=== PATIENT | female | born 1950 | race Caucasian/White ===

== ENCOUNTER 2017-05-29 07:09 | Emergency (ER) | payer BC, OTHER ==
[2017-05-29 07:19] VITALS: BP 135/76
--- NOTE | 2017-05-29 07:39 | UC ---
Respiratory Complaint HPI - HPI Summary HPI Summary: OVER 1 WEEK OF PRODUCTIVE COUGH, CONGESTION AND INTERMITTENT SUBJECTIVE FEVER/ CHILLS. FEELS LIKE HER GLANDS ARE SWOLLEN. NO ST, EAR PAIN, N/V/D. NOT FEELING SOB OR WHEEZY. - History of Current Complaint Chief Complaint: UCRespiratory Stated Complaint: COUGH Time Seen by Provider: 05/29/17 07:21 Hx Obtained From: Patient Onset/Duration: Gradual Onset, Lasting Days, Still Present Timing: Constant Severity Initially: Moderate Severity Currently: Moderate Pain Intensity: 0 Pain Scale Used: 0-10 Numeric Character: Cough: Productive Aggravating Factors: Nothing Alleviating Factors: Nothing Associated Signs And Symptoms: Positive: Fever, Chills, URI, Nasal Congestion. Negative: Dyspnea, Wheezing, Hemoptysis - Allergies/Home Medications Allergies/Adverse Reactions: Allergies Allergy/AdvReac Type Severity Reaction Status Date / Time Bee Venom Allergy Severe Anaphylatic Verified 05/29/17 07:19 Shock Nitrofurantoin Allergy Severe Wheezing Verified 05/29/17 07:19 [From Macrodantin] Adhesive Tape Allergy Rash Verified 05/29/17 07:20 Home Medications: Home Medications Estradiol VAGINAL TAB(NF) [Vagifem] 1 tab VAGINAL SEE INSTRUCTIONS 05/29/17 [ History Confirmed 05/29/17] [id number]-Bkyvgrywuf-Gesac [VICKS DAYQUIL/NYQUIL COLD (Liquid)] 30 ml PO BID PRN 05/29/17 [History Confirmed 05/29/17] PMH/Surg Hx/FS Hx/Imm Hx Previously Healthy: Yes - Surgical History Surgical History: Yes Surgery Procedure, Year, and Place: LEFT SHOULDER ARTHROSCOPY 2013. LEFT HIP ARTHROSCOPY 2009. RIGHT KNEE ARTHROSCOPY 2005. RUPTURED EAR DRUM-PATCHED THE HOLE 02/2016 - Family History Known Family History: Positive: None Negative: Hypertension - Social History Alcohol Use: Rare Substance Use Type: None Smoking Status (MU): Never Smoked Tobacco - Immunization History Most Recent Influenza Vaccination: Not UTD Most Recent Pneumonia Vaccination: 2006 Hx Tetanus, Diphtheria Vaccination: Yes Review of Systems Constitutional: Fever, Chills, Fatigue ENT: Nasal Discharge Respiratory: Cough Cardiovascular: Negative Gastrointestinal: Negative All Other Systems Reviewed And Are Negative: Yes Physical Exam Triage Information Reviewed: Yes Appearance: Well-Appearing, No Pain Distress, Well-Nourished Vital Signs: Initial Vital Signs Temp 98.8 F 05/29/17 07:13 Pulse 82 05/29/17 07:13 Resp 18 05/29/17 07:13 BP 135/76 05/29/17 07:13 Pulse Ox 97 05/29/17 07:13 Vital Signs Reviewed: Yes Eyes: Positive: Conjunctiva Clear ENT: Positive: Hearing grossly normal, Pharynx normal, TMs normal Neck: Positive: Supple, Nontender, No Lymphadenopathy Respiratory Exam: Normal Cardiovascular Exam: Normal Abdomen Description: Positive: Soft Musculoskeletal: Positive: No Edema Neurological: Positive: Alert Psychological: Positive: Age Appropriate Behavior Skin: Negative: rashes UC Diagnostic Evaluation - Laboratory O2 Sat by Pulse Oximetry: 97 Respiratory Course/Dx - Differential Dx/Diagnosis Provider Diagnoses: ACUTE BRONCHITIS Discharge - Discharge Plan Condition: Stable Disposition: HOME Prescriptions: Azithromycin [Azithromycin 500 MG TAB] 500 mg PO DAILY #5 tab predniSONE TAB* [Deltasone TAB*] 40 mg PO DAILY #10 tab Patient Education Materials: Acute Bronchitis (ED) Referrals: Nichelle Marte MD [Primary Care Provider] - If Needed Additional Instructions: ACUTE BRONCHITIS We used to think antibiotics were necessary to treat bronchitis, but studies have shown that respiratory viruses cause the disease in the vast majority of cases. Like head colds, most cases of bronchitis get better without antibiotics. We may prescribe antibiotics if we believe bacteria are damaging your airways, or if there's high risk the bronchitis will worsen into pneumonia (such as for individuals with emphysema or other lung disease). Increase your fluid intake. A cool mist humidifier may make your lungs more comfortable. An expectorant (cough medicine that loosens phlegm) can help. Recovery from bronchitis can be somewhat slow, but you should not have any significant worsening or new fevers. As long as you can breathe easily and you continue to have steady improvement, it is not important how many days it takes you to get better. Call or return if you develop increasing fever, shortness of breath, chest pain , bloody sputum, or otherwise worsen. If you have not improved at all after several days, contact your primary care physician or return here. YOUR SYMPTOMS MAY BE VIRALLY MEDIATED BUT GIVEN THE LENGTH OF TIME YOU HAVE BEEN ILL WE WILL COVER YOUR WITH ANTIBIOTICS. IF YOU START THE MEDICINE BE SURE TO TAKE IT FOR THE FULL COURSE. SEEK FOLLOW-UP WITH YOUR PCP IF YOU ARE NOT IMPROVING OVER THE NEXT 1-2 WEEKS.
== END 2017-05-29 07:38 | disposition home or self-care (01) ==
LOC: UCEAST 07:09
DX: J20.9 Acute bronchitis, unspecified (principal)
CPT/HCPCS: 99212; G0463